=== PATIENT | female | born 1990 | race Caucasian/White ===

== ENCOUNTER 2022-08-10 10:00 | Outpatient (CLI) | payer BC, SELFPAY | END 2022-08-10 10:01 | disposition home or self-care (01) | PROVIDERS: Visit Provider Physician Assistant | DX: Z13.1 Encounter for screening for diabetes mellitus (principal); Z13.6 Encounter for screening for cardiovascular disorders | CPT/HCPCS: 80061; 82947 ==

== ENCOUNTER 2025-01-03 12:22 | Outpatient (CLI) | payer BC, SELFPAY | END 2025-01-03 12:23 | disposition home or self-care (01) | DX: L03.116 Cellulitis of left lower limb (principal) | CPT/HCPCS: 87070; 87186 ==

== ENCOUNTER 2025-01-07 12:38 | Outpatient (CLI) | payer BC, SELFPAY | END 2025-01-07 12:39 | disposition home or self-care (01) | LOC: WOUND 12:38 | PROVIDERS: Visit Provider Nurse Practitioner Family | DX: L08.89 Other specified local infections of the skin and subcutaneous tissue (principal); L81.8 Other specified disorders of pigmentation | CPT/HCPCS: 11042; G0463 ==

== ENCOUNTER 2025-01-14 09:39 | Outpatient (CLI) | payer BC, SELFPAY | END 2025-01-14 09:40 | disposition home or self-care (01) | LOC: WOUND 09:39 | PROVIDERS: Visit Provider Nurse Practitioner Family | DX: L08.89 Other specified local infections of the skin and subcutaneous tissue (principal); L81.8 Other specified disorders of pigmentation | CPT/HCPCS: 11042 ==

== ENCOUNTER 2025-01-21 09:28 | Outpatient (CLI) | payer BC, SELFPAY | END 2025-01-21 09:29 | disposition home or self-care (01) | LOC: WOUND 09:28 | PROVIDERS: Visit Provider Nurse Practitioner Family | DX: L08.89 Other specified local infections of the skin and subcutaneous tissue (principal); L81.8 Other specified disorders of pigmentation | CPT/HCPCS: 11042 ==

== ENCOUNTER 2025-01-28 09:37 | Outpatient (CLI) | payer BC, SELFPAY | END 2025-01-28 09:38 | disposition home or self-care (01) | LOC: WOUND 09:37 | PROVIDERS: Visit Provider Nurse Practitioner Family | DX: L08.89 Other specified local infections of the skin and subcutaneous tissue (principal); L81.8 Other specified disorders of pigmentation | CPT/HCPCS: 11042 ==

== ENCOUNTER 2025-02-04 09:43 | Outpatient (CLI) | payer BC, SELFPAY | END 2025-02-04 09:44 | disposition home or self-care (01) | LOC: WOUND 09:43 | PROVIDERS: Visit Provider Nurse Practitioner Family | DX: L08.89 Other specified local infections of the skin and subcutaneous tissue; L81.8 Other specified disorders of pigmentation | CPT/HCPCS: 11042 ==

== ENCOUNTER 2025-02-11 09:36 | Outpatient (CLI) | payer BC, SELFPAY | END 2025-02-11 09:37 | disposition home or self-care (01) | LOC: WOUND 09:36 | PROVIDERS: Visit Provider Nurse Practitioner Family | DX: L81.8 Other specified disorders of pigmentation (principal); L08.89 Other specified local infections of the skin and subcutaneous tissue | CPT/HCPCS: 11042 ==

== ENCOUNTER 2025-02-18 09:42 | Outpatient (CLI) | payer BC, SELFPAY | END 2025-02-18 09:43 | disposition home or self-care (01) | LOC: WOUND 09:42 | DX: L81.8 Other specified disorders of pigmentation (principal); L08.89 Other specified local infections of the skin and subcutaneous tissue; I87.2 Venous insufficiency (chronic) (peripheral) | CPT/HCPCS: 11042 ==

== ENCOUNTER 2025-02-25 09:41 | Outpatient (CLI) | payer BC, SELFPAY ==
[2025-02-25 11:18] LABS: Hematocrit* 41.8 % (33.0-51.0); Hemoglobin* 14.0 gm/dL (12.0-16.0); Immature Granulocytes Abs Auto 0.01 K/uL (0.00-0.30); Immature Granulocytes Pct Auto 0.1 %; Lymphocytes Absolute Auto 2.58 K/uL (0.90-2.90); Mean Corpuscular HGB Conc 34 gm/dL (32-36); Mean Corpuscular Hemoglobin 27 pg (26-34); Mean Corpuscular Volume 80 fL (80-100); RDW Coefficient of Variation % 12.7 % (11.5-15.5); Red Blood Count* 5.24 m/uL (4.00-5.20); White Blood Count* 7.64 K/uL (4.50-11.00)
[2025-02-25 11:21] LABS: Slide Review Reflex No
[2025-02-25 12:22] LABS: Chloride* 103 mmol/L (96-114); Potassium* 4.3 mmol/L (3.6-5.1); Sodium* 137 mmol/L (135-149)
[2025-02-25 12:26] LABS: Anion Gap 9 mEq/L (7-15); Blood Urea Nitrogen* 12 mg/dL (5-24); Calcium* 9.6 mg/dL (8.4-10.6); Carbon Dioxide* 25 mmol/L (20-32); Creatinine* 0.7 mg/dL (0.5-1.5); Estimated Glomerular Filt Rate 116 ml/min; Glucose* 107 mg/dL (60-115)
== END 2025-02-25 09:42 | disposition home or self-care (01) ==
LOC: WOUND 09:41
PROVIDERS: Visit Provider Nurse Practitioner Family
DX: L81.8 Other specified disorders of pigmentation (principal); I87.2 Venous insufficiency (chronic) (peripheral); L08.89 Other specified local infections of the skin and subcutaneous tissue; Z13.1 Encounter for screening for diabetes mellitus
CPT/HCPCS: 11042; 36415; 80048; 83036; 85025; 86140

== ENCOUNTER 2025-03-04 09:48 | Outpatient (CLI) | payer BC, SELFPAY | END 2025-03-04 09:49 | disposition home or self-care (01) | LOC: WOUND 09:49 | PROVIDERS: Visit Provider Nurse Practitioner Family | DX: L81.8 Other specified disorders of pigmentation (principal); I87.2 Venous insufficiency (chronic) (peripheral); L08.89 Other specified local infections of the skin and subcutaneous tissue | CPT/HCPCS: 11042 ==

== ENCOUNTER 2025-03-11 08:54 | Outpatient (CLI) | payer BC, SELFPAY | END 2025-03-11 08:55 | disposition home or self-care (01) | LOC: WOUND 08:54 | DX: L81.8 Other specified disorders of pigmentation (principal); I87.2 Venous insufficiency (chronic) (peripheral); L08.89 Other specified local infections of the skin and subcutaneous tissue; L97.322 Non-pressure chronic ulcer of left ankle with fat layer exposed | CPT/HCPCS: 11042 ==

== ENCOUNTER 2025-03-18 09:48 | Outpatient (CLI) | payer BC, SELFPAY | END 2025-03-18 09:49 | disposition home or self-care (01) | LOC: WOUND 09:48 | PROVIDERS: Visit Provider Nurse Practitioner Family | DX: L81.8 Other specified disorders of pigmentation (principal); I87.2 Venous insufficiency (chronic) (peripheral); L97.322 Non-pressure chronic ulcer of left ankle with fat layer exposed | CPT/HCPCS: 11042 ==

== ENCOUNTER 2025-03-25 09:40 | Outpatient (CLI) | payer BC, SELFPAY | END 2025-03-25 09:41 | disposition home or self-care (01) | LOC: WOUND 09:40 | PROVIDERS: Visit Provider Nurse Practitioner Family | DX: L81.8 Other specified disorders of pigmentation (principal); I87.2 Venous insufficiency (chronic) (peripheral); L97.322 Non-pressure chronic ulcer of left ankle with fat layer exposed | CPT/HCPCS: 11042 ==

== ENCOUNTER 2025-04-01 09:40 | Outpatient (CLI) | payer BC, SELFPAY | END 2025-04-01 09:41 | disposition home or self-care (01) | LOC: WOUND 09:40 | PROVIDERS: Visit Provider Nurse Practitioner Family | DX: L81.8 Other specified disorders of pigmentation (principal); I87.2 Venous insufficiency (chronic) (peripheral); L97.322 Non-pressure chronic ulcer of left ankle with fat layer exposed | CPT/HCPCS: 97597 ==

== ENCOUNTER 2025-04-08 09:39 | Outpatient (CLI) | payer BC, SELFPAY | END 2025-04-08 09:40 | disposition home or self-care (01) | LOC: WOUND 09:39 | PROVIDERS: Visit Provider Nurse Practitioner Family | DX: L81.8 Other specified disorders of pigmentation (principal); I87.2 Venous insufficiency (chronic) (peripheral) | CPT/HCPCS: G0463 ==